=== PATIENT | female | born 1960 | race Two or more races ===

== ENCOUNTER → 2022-07-05 14:04 | Outpatient (CLI) | payer BC, SELFPAY ==
--- NOTE | ~2022-07-05 | MR_ITS ---
EXAMINATION: MR elbow LT wo con DATE: 07/05/2022 14:41 INDICATION: Lateral epicondylitis with left elbow pain after painting. TECHNIQUE: Magnetic resonance imaging (MRI) of the left elbow was performed without intravenous contr ast. Sequences included coronal, axial, and sagittal PD-weighted FS FSE and coronal, axial, and sagit leticia PD-weighted FSE. COMPARISON: None FINDINGS: Osseous/other: Bone alignment is normal. No fracture or pathologic marrow replacing process. Moderate osteoarthritis with nonuniform joint space narrowing and partial-thickness cartilage loss in place involving greate r than 50% the cartilage thickness and in places with underlying subarticular mild edema-like marrow signal change. Tendons: Triceps and biceps brachii tendons are normal. Mild tendinopathy without tear at the ulnar insertion of the brachialis tendon. Additional mild tendinopathy without tear at the lateral epicondylar origin of the common extensor tendon wad. Common flexor tendon wad is normal. Ligaments: The medial and lateral collateral ligament complexes are normal. Cubital tunnel: Cubital tunnel is unremarkable with normal signal and caliber of the ulnar nerve. Fluid: Large left elbow joint effusion with moderate synovitis throughout the recess of the joint. IMPRESSION: 1. Moderate osteoarthritis with scattered moderate and high-grade chondromalacia at the left elbow an d likely reactive elbow joint effusion with synovitis. 2. Mild tendinopathy without tear at the distal brachialis and proximal common extensor tendon wad. Reviewed, dictated and finalized at location L. IMPRESSION: 1. Moderate osteoarthritis with scattered moderate and high-grade chondromalaci a at the left elbow and likely reactive elbow joint effusion with synovitis. 2. Mild tendinopathy without tear at the distal brachialis and proximal common extensor tendon wad.
== END ==
PROVIDERS: PCP Internal Medicine; Visit Provider Orthopaedic Surgery
DX: M77.12 Lateral epicondylitis, left elbow (principal); M77.02 Medial epicondylitis, left elbow; M65.9 Synovitis and tenosynovitis, unspecified; M19.022 Primary osteoarthritis, left elbow; M94.222 Chondromalacia, left elbow
CPT/HCPCS: 73221